=== PATIENT | female | born 1960 | race Caucasian/White ===

== ENCOUNTER 2022-08-19 10:45 | Inpatient (IN) | payer BC ==
--- NOTE | 2022-08-19 11:53 | ED ---
General Adult HPI - General Chief complaint: Shortness of Breath Stated complaint: possible pneumonia or CHF Time Seen by Provider: 08/19/22 11:33 Source: patient Mode of arrival: ambulatory Limitations: no limitations - History of Present Illness Initial comments: Dictation was produced using [employer]. dictation software. please excuse any grammatical, word or spelling errors. Chief Complaint: 62-year-old female told by urgent care come to the ER for further evaluation History of Present Illness: 62-year-old female presents emergency department for further evaluation. She is a recurrent visitor to the urgent care today. She had a repeat x-ray that showed abnormal findings that may represent heart failure versus pneumonia. She presents today after being told to come here. Patient presented to the urgent care approximately 1-2 weeks ago for the same symptoms. She is prescribed medication to treat respiratory infection. Patient felt better symptoms came back after the medication wore off. Patient has a fever. Denies any shortness of breath on lying flat. No leg swelling. History of heart problems. The ROS documented in this emergency department record has been reviewed and confirmed by me. Those systems with pertinent positive or negative responses have been documented in the HPI. All other systems are other negative and/or noncontributory. PHYSICAL EXAM: General Impression: Alert and oriented x3, not in acute distress HEENT: Normocephalic atraumatic, extra-ocular movements intact, pupils equal and reactive to light bilaterally, mucous membranes moist. Cardiovascular: Heart regular rate and rhythm Chest: Able to complete full sentences, no retractions, no tachypnea Abdomen: abdomen soft, non-tender, non-distended, no organomegaly Musculoskeletal: Pulses present and equal in all extremities, no peripheral edema Motor: no focal deficits noted Neurological: CN II-XII grossly intact, no focal motor or sensory deficits noted Skin: Intact with no visualized rashes Psych: Normal affect and mood ED course: 62-year-old well-appearing female presents emergency Department after having had an x-ray at urgent care that showed heart failure versus pneumonia. Vital signs upon arrival are within acceptable limits. Nursing notes and chart review was performed CBC metabolic panel is within acceptable limits. Coag panel is unremarkable. Metabolic panel was within acceptable limits. Brain natruretic peptide is 4980. Chest x-ray shows small right pleural effusion. No obvious heart failure. Physical presentation consistent with new onset atrial fibrillation. Patient started Cardizem and heparin. My EKG interpretation: Ventricular rate 115, A. fib with RVR, QS 84, QTC 39. No NM prolongation, no QTC prolongation, no ST or T-wave changes noted. Overall, this EKG is unremarkable Critical Care: yes Critical Care time: 33 minutes - Related Data Home Medications Medication Instructions Recorded Confirmed Albuterol Sulfate [Albuterol 2 puff PO RT-Q6H PRN 08/19/22 08/19/22 Sulfate Hfa] Allergies Allergy/AdvReac Type Severity Reaction Status Date / Time azithromycin AdvReac Nausea & Verified 08/19/22 12:36 Vomiting Review of Systems ROS Statement: Those systems with pertinent positive or pertinent negative responses have been documented in the HPI. ROS Other: All systems not noted in ROS Statement are negative. Past Medical History Past Medical History: No Reported History History of Any Multi-Drug Resistant Organisms: None Reported Past Surgical History: No Surgical Hx Reported Past Psychological History: No Psychological Hx Reported Smoking Status: Never smoker Past Alcohol Use History: None Reported Past Drug Use History: None Reported General Exam Limitations: no limitations Course Vital Signs 08/19/22 08/19/22 11:07 12:03 Temperature 98 F Pulse Rate 77 Respiratory 18 18 Rate Blood Pressure 160/105 O2 Sat by Pulse 99 Oximetry Medical Decision Making - Lab Data Result diagrams: 08/19/22 11:58 08/19/22 11:58 Lab Results 08/19/22 08/19/22 08/19/22 Range/Units 11:58 11:58 11:58 WBC 9.2 (3.8-10.6) k/uL RBC 4.84 (3.80-5.40) m/uL Hgb 12.8 (11.4-16.0) gm/dL Hct 39.8 (34.0-46.0) % MCV 82.3 (80.0-100.0) fL MCH 26.5 (25.0-35.0) pg MCHC 32.2 (31.0-37.0) g/dL RDW 15.6 H (11.5-15.5) % Plt Count 355 (150-450) k/uL MPV 8.6 Neutrophils % 80 % Lymphocytes % 15 % Monocytes % 4 % Eosinophils % 0 % Basophils % 0 % Neutrophils # 7.3 (1.3-7.7) k/uL Lymphocytes # 1.4 (1.0-4.8) k/uL Monocytes # 0.3 (0-1.0) k/uL Eosinophils # 0.0 (0-0.7) k/uL Basophils # 0.0 (0-0.2) k/uL Hypochromasia Moderate PT (9.0-12.0) sec INR (<1.2) APTT (22.0-30.0) sec Sodium 141 (137-145) mmol/L Potassium 4.3 (3.5-5.1) mmol/L Chloride 112 H (98-107) mmol/L Carbon Dioxide 19 L (22-30) mmol/L Anion Gap 10 mmol/L BUN 12 (7-17) mg/dL Creatinine 0.50 L (0.52-1.04) mg/dL Est GFR (CKD-EPI)AfAm >90 (>60 ml/min/1.73 sqM) Est GFR (CKD-EPI)NonAf >90 (>60 ml/min/1.73 sqM) Glucose 130 H (74-99) mg/dL Calcium 9.3 (8.4-10.2) mg/dL Magnesium (1.6-2.3) mg/dL Troponin I (0.000-0.034) ng/mL NT-Pro-B Natriuret Pep 4980 pg/mL 08/19/22 08/19/22 08/19/22 Range/Units 11:58 11:58 12:11 WBC (3.8-10.6) k/uL RBC (3.80-5.40) m/uL Hgb (11.4-16.0) gm/dL Hct (34.0-46.0) % MCV (80.0-100.0) fL MCH (25.0-35.0) pg MCHC (31.0-37.0) g/dL RDW (11.5-15.5) % Plt Count (150-450) k/uL MPV Neutrophils % % Lymphocytes % % Monocytes % % Eosinophils % % Basophils % % Neutrophils # (1.3-7.7) k/uL Lymphocytes # (1.0-4.8) k/uL Monocytes # (0-1.0) k/uL Eosinophils # (0-0.7) k/uL Basophils # (0-0.2) k/uL Hypochromasia PT 11.4 (9.0-12.0) sec INR 1.1 (<1.2) APTT 20.6 L (22.0-30.0) sec Sodium (137-145) mmol/L Potassium (3.5-5.1) mmol/L Chloride (98-107) mmol/L Carbon Dioxide (22-30) mmol/L Anion Gap mmol/L BUN (7-17) mg/dL Creatinine (0.52-1.04) mg/dL Est GFR (CKD-EPI)AfAm (>60 ml/min/1.73 sqM) Est GFR (CKD-EPI)NonAf (>60 ml/min/1.73 sqM) Glucose (74-99) mg/dL Calcium (8.4-10.2) mg/dL Magnesium 1.8 (1.6-2.3) mg/dL Troponin I <0.012 (0.000-0.034) ng/mL NT-Pro-B Natriuret Pep pg/mL Disposition Clinical Impression: New onset a-fib Disposition: ADMITTED IP TO THIS HOSP Condition: Serious Referrals: Liban Moura III, MD [Primary Care Provider] - 1-2 days Decision Time: 14:17
[2022-08-19 12:07] LABS: Basophils % (A) 0 %; Eosinophils % (A) 0 %; HCT 39.8 % (34.0-46.0); HGB 12.8 gm/dL (11.4-16.0); Hypochromasia Moderate; Lymphocytes # (A) 1.4 k/uL (1.0-4.8); Lymphocytes % (A) 15 %; MCH 26.5 pg (25.0-35.0); MCHC 32.2 g/dL (31.0-37.0); MCV 82.3 fL (80.0-100.0); Mean Platelet Volume 8.6; Monocytes # (A) 0.3 k/uL (0-1.0); Monocytes % (A) 4 %; Neutrophils # (A) 7.3 k/uL (1.3-7.7); Neutrophils % (A) 80 %; Platelet Count 355 k/uL (150-450); RBC 4.84 m/uL (3.80-5.40); RDW 15.6 % (11.5-15.5); WBC 9.2 k/uL (3.8-10.6)
[2022-08-19 12:25] LABS: African American GFR (CKD) >90 (>60 ml/min/1.73 sqM); Anion Gap 10 mmol/L; Blood Urea Nitrogen 12 mg/dL (7-17); Calcium 9.3 mg/dL (8.4-10.2); Carbon Dioxide 19 mmol/L (22-30); Chloride 112 mmol/L (98-107); Glucose 130 mg/dL (74-99); Non-African American GFR(CKD) >90 (>60 ml/min/1.73 sqM); Potassium 4.3 mmol/L (3.5-5.1); Sodium 141 mmol/L (137-145)
--- NOTE | 2022-08-19 12:29 | XR ---
EXAMINATION TYPE: XR chest 2V DATE OF EXAM: 08/19/2022 COMPARISON: None INDICATION: Reported wheezing TECHNIQUE: Frontal and lateral views of the chest are obtained. FINDINGS: The heart size is normal. The pulmonary vasculature is normal. The lungs are clear. No suspicious infiltrates. No suspicious peribronchial thickening is evident. S ome minimal posterior effusion may be present on the right. IMPRESSION: 1. Suggestion of minimal posterior right pleural effusion. 2. Acute pulmonary process not otherwise radiographically evident. 3. Follow-up can be performed as clinically indicated.
[2022-08-19] MEDS ORDERED: NALOXONE 0.4 MG/ML 1 ML VIAL IV PRN (13:40)
[2022-08-19] MEDS ORDERED: HEPARIN SODIUM 1,000 UN/ML (10ML VL) IV PRN (13:40)
[2022-08-19] MEDS ORDERED: ACETAMINOPHEN TAB 325 MG TAB PO PRN (13:40)
[2022-08-19] MEDS ORDERED: HEPARIN SODIUM 1,000 UN/ML (10ML VL) IV ONE (13:40)
[2022-08-19] MEDS ORDERED: HEPARIN SOD,PORK IN 0.45% NACL 25,000 UNIT in 0.45% NACL 1 250ML.BAG IV SCH (13:45)
[2022-08-19] MEDS ORDERED: SODIUM CHLORIDE 0.9% 1,000 ML IV SCH (13:45)
[2022-08-19 14:01] LABS: INR 1.1 (<1.2); Partial Thromboplastin Time 20.6 sec (22.0-30.0); Prothrombin Time 11.4 sec (9.0-12.0)
[2022-08-19] MEDS: DILTIAZEM 125 MG in SODIUM CHLORIDE 0.9% 100 ML IV SCH (14:38)
[2022-08-20] MEDS: DILTIAZEM 125 MG in SODIUM CHLORIDE 0.9% 100 ML IV SCH (04:02)
[2022-08-20] MEDS ORDERED: ALBUTEROL NEBULIZED 2.5 MG/3 ML INHALATION PRN (07:21)
[2022-08-20 08:37] LABS: Basophils % (A) 0 %; Eosinophils # (A) 0.1 k/uL (0-0.7); Eosinophils % (A) 1 %; HCT 39.7 % (34.0-46.0); HGB 12.6 gm/dL (11.4-16.0); Hypochromasia Moderate; Lymphocytes # (A) 1.9 k/uL (1.0-4.8); Lymphocytes % (A) 26 %; MCH 26.4 pg (25.0-35.0); MCHC 31.7 g/dL (31.0-37.0); MCV 83.4 fL (80.0-100.0); Mean Platelet Volume 8.2; Monocytes # (A) 0.3 k/uL (0-1.0); Monocytes % (A) 4 %; Neutrophils % (A) 67 %; Platelet Count 337 k/uL (150-450); RBC 4.75 m/uL (3.80-5.40); RDW 15.7 % (11.5-15.5); WBC 7.5 k/uL (3.8-10.6)
[2022-08-20 08:52] LABS: African American GFR (CKD) >90 (>60 ml/min/1.73 sqM); Anion Gap 7 mmol/L; Blood Urea Nitrogen 12 mg/dL (7-17); Calcium 8.9 mg/dL (8.4-10.2); Carbon Dioxide 24 mmol/L (22-30); Chloride 111 mmol/L (98-107); Glucose 125 mg/dL (74-99); Non-African American GFR(CKD) >90 (>60 ml/min/1.73 sqM); Potassium 4.3 mmol/L (3.5-5.1); Sodium 142 mmol/L (137-145)
[2022-08-20] MEDS ORDERED: METOPROLOL TARTRATE 12.5 MG TAB PO SCH (09:00)
--- NOTE | 2022-08-20 09:08 | P.CRDCN ---
History of Present Illness Consult date: 08/20/22 Consult reason: atrial fibrillation History of present illness: History of present illness: This is a 62-year-old female with no significant past medical history. Patient was recently treated for a bronchitis with amoxicillin inhalers and steroids which seemed to improve her symptoms. She did a follow-up appointment at the clinic because she was having a cough with deep breathing in the clinic did a chest x-ray and recommended that she come in the hospital for further evaluation. Patient was found to be in atrial fibrillation. Chest x-ray showed minimal right pleural effusion with no acute process. Patient apparently was s tarted on Cardizem drip which was discontinued because her heart rate dropped down to 60s and patient was started on heparin drip. Patient states she has multiple siblings with atrial fibrillation and has a brother that had an [place] in his 50s. 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 Troponin negative 1 draw * no cardiac home medications Review Of Systems: at the time of my evaluation Constitutional: No fever, no chills. No weakness, fatigue or lethargy. EENT: No headache. No dizziness. Lungs: No shortness of breath, cough, no sputum production. No wheezing. Cardiovascular: No chest pain, no lower extremity edema. No palpitations. No paroxysmal nocturnal dyspnea. No orthopnea. No lightheadedness or dizziness. No syncopal episodes. Abdominal: No abdominal pain. No nausea, vomiting. No diarrhea. No constipation. No bloody or tarry stools.. No loss of appetite. Genitourinary: No dysuria.. No urinary retention. Musculoskeletal: No myalgias. No muscle weakness, no gait dysfunction, no frequent falls. No back pain. No neck pain. Integumentary: No wounds, no lesions. No rash or pruritus. No unusual bruising. Neurologic: No aphasia. No facial droop. No change in mentation. No head injury. No headache. No paralysis. No paresthesia. Psychiatric: No depression. reports anxiety. Endocrine: No abnormal blood sugars. Physical examination: Gen: This is a 62-year-old female. She is resting in bed and appears to be very anxious. VS:reviewed HEENT: Head is atraumatic, normocephalic. Pupils equal, round. Sclerae is anicteric. NECK: Supple. No JVD. No lymphadenopathy. No thyromegaly. LUNGS: Clear to auscultation. No wheezes or rhonchi. No intercostal retractions. HEART: irregular rate and rhythm. No murmur. ABDOMEN: Soft. Bowel sounds are present. No masses. No tenderness. EXTREMITIES: No pedal edema. No calf tenderness.dorsalis pedis +2 bilaterally NEUROLOGICAL: Patient is awake, alert and oriented x3. Cranial nerves 2 through 12 are grossly intact. Assessment: new-onset atrial fibrillation, paroxysmal atrial fibrillation Recent treatment for bronchitis Plan: transition patient to eliquis 5 mg twice daily and discontinue heparin drip add Toprol-XL 25 mg daily Obtain 2-D echocardiogram and Doppler study to assess cardiac structure and function May consider cardioversion in 3 weeks as an outpatient Further recommendations to follow based upon clinical course Thank you kindly for this consultation. Nurse practitioner note has been reviewed, I agree with documented findings and plan of care. Patient was seen and examined. Past Medical History Past Medical History: No Reported History History of Any Multi-Drug Resistant Organisms: None Reported Past Surgical History: No Surgical Hx Reported Past Psychological History: No Psychological Hx Reported Smoking Status: Never smoker Past Alcohol Use History: None Reported Past Drug Use History: None Reported Medications and Allergies Home Medications Medication Instructions Recorded Confirmed Type Albuterol Sulfate [Albuterol 2 puff PO RT-Q6H PRN 08/19/22 08/19/22 History Sulfate Hfa] Apixaban [Eliquis] 5 mg PO BID #60 tab 08/20/22 Rx Allergies Allergy/AdvReac Type Severity Reaction Status Date / Time azithromycin AdvReac Nausea & Verified 08/19/22 12:36 Vomiting Physical Exam Vitals: Vital Signs Temp Pulse Pulse Resp BP BP Pulse Ox 08/20/22 04:00 76 18 130/80 97 08/20/22 01:44 70 08/20/22 00:00 98.7 F 88 18 132/77 95 08/19/22 22:05 98.2 F 70 16 127/77 97 08/19/22 19:20 79 18 133/87 99 08/19/22 18:02 96 18 140/104 100 08/19/22 17:05 81 18 144/97 98 08/19/22 16:00 83 17 127/96 100 08/19/22 15:30 90 18 133/91 99 08/19/22 14:40 114 H 16 148/116 96 08/19/22 12:03 18 08/19/22 11:07 98 F 77 18 160/105 99 Intake and Output 08/19/22 08/20/22 08/20/22 22:59 06:59 14:59 Intake Total 378.48 Balance 378.48 Intake: Intake, IV Titration 138.48 Amount Diltiazem 125 mg In 50 Sodium Chloride 0.9% 100 ml @ 10 MG/HR 10 mls/hr IV .[id number] [facility] Rx#: [id number] Heparin Sod,Pork in 0.45% 88.48 NaCl 25,000 unit In 0.45 % NaCl 1 250ml.bag @ 10 UNITS/KG/HR 9.979 mls/hr IV .Q24H [facility] Rx#: [id number] Oral 240 Other: # Voids 3 Results 08/20/22 08:09 08/20/22 08:09 Cardiac Enzymes 08/19/22 Range/Units 11:58 Troponin I <0.012 (0.000-0.034) ng/mL Coagulation 08/19/22 08/19/22 Range/Units 12:11 22:43 PT 11.4 (9.0-12.0) sec APTT 20.6 L 28.3 (22.0-30.0) sec CBC 08/19/22 Range/Units 11:58 WBC 9.2 (3.8-10.6) k/uL RBC 4.84 (3.80-5.40) m/uL Hgb 12.8 (11.4-16.0) gm/dL Hct 39.8 (34.0-46.0) % Plt Count 355 (150-450) k/uL Comprehensive Metabolic Panel 08/19/22 Range/Units 11:58 Sodium 141 (137-145) mmol/L Potassium 4.3 (3.5-5.1) mmol/L Chloride 112 H (98-107) mmol/L Carbon Dioxide 19 L (22-30) mmol/L BUN 12 (7-17) mg/dL Creatinine 0.50 L (0.52-1.04) mg/dL Glucose 130 H (74-99) mg/dL Calcium 9.3 (8.4-10.2) mg/dL Current Medications Generic Name Dose Route Start Last Admin Trade Name Mariela PRN Reason Stop Dose Admin Acetaminophen 650 mg 08/19/22 13:40 Acetaminophen Tab 325 Mg Tab PO Q6HR PRN Mild Pain or Fever > 100.5 Albuterol Sulfate 2.5 mg 08/20/22 07:21 Albuterol Nebulized 2.5 Mg/3 Ml INHALATION RT-Q6H PRN Shortness Of Breath Heparin Sodium (Porcine) 0 unit 08/19/22 13:40 Heparin Sodium 1,000 Un/Ml (10ml Vl) IV PER PROTOCOL PRN Low PTT Protocol Heparin Sodium/Sodium Chloride 250 mls @ 9.979 mls/hr 08/19/22 13:45 08/19/22 23:31 25,000 unit/ Sodium Chloride IV 13 units/kg/hr .Q24H [facility] 12.973 mls/hr Titration Protocol 10 UNITS/KG/HR Sodium Chloride 1,000 mls @ 20 mls/hr 08/19/22 13:45 08/19/22 14:38 Saline 0.9% IV 20 mls/hr .Q24H [facility] Administration Naloxone HCl 0.2 mg 08/19/22 13:40 Naloxone 0.4 Mg/Ml 1 Ml Vial IV Q2M PRN Opioid Reversal Pantoprazole Sodium 40 mg 08/20/22 07:30 Pantoprazole 40 Mg Tablet PO AC-[id number] [facility] Intake and Output 08/19/22 08/20/22 08/20/22 22:59 06:59 14:59 Intake Total 378.48 Balance 378.48 Intake: Intake, IV Titration 138.48 Amount Diltiazem 125 mg In 50 Sodium Chloride 0.9% 100 ml @ 10 MG/HR 10 mls/hr IV .[id number] [facility] Rx#: [id number] Heparin Sod,Pork in 0.45% 88.48 NaCl 25,000 unit In 0.45 % NaCl 1 250ml.bag @ 10 UNITS/KG/HR 9.979 mls/hr IV .Q24H [facility] Rx#: [id number] Oral 240 Other: # Voids 3 08/19/22 11:58 08/19/22 11:58
[2022-08-20] MEDS: PANTOPRAZOLE 40 MG TABLET PO SCH (09:14)
[2022-08-20] MEDS: METOPROLOL SUCCINATE (ER) 25 MG TAB.ER.24H PO SCH (11:25)
[2022-08-20] MEDS: APIXABAN 5 MG TAB PO SCH ×2 (11:25→20:35)
--- NOTE | 2022-08-20 13:47 | P.HPIM ---
History of Present Illness H&P Date: 08/20/22 This is a 62-year-old female who was recently presented to the emergency department with with palpitations and increasing shortness of breath. Patient reports she has been seen at the outpatient setting in an urgent care started on antibiotics and steroids and has completed the course reporting feeling better she was reporting some upper sinus congestion and pressure with some occasional shortness of breath. Patient reports she felt better for a few days and the palpitations started again and was instructed to follow-up at the ER for further evaluation. Patient follows with Dr. Moura in the outpatient setting with no past medical history reports that she does not take medications on a regular basis. Patient does have an inhaler as needed that was given to her recently. EKG displayed atrial fibrillation with RVR with a heart rate of 115. Chest x- ray with no acute pulmonary process with concerns of a possible minimal posterior right pleural effusion. Troponin was negative. Patient was started on IV heparin along with Cardizem and her heart rate dropped down to the 60s quickly and Cardizem was discontinued. Cardiology was consulted for evaluation and continued telemetry monitoring. 2-D echo is ordered and pending. Review Of Systems: Constitutional: No fever, no chills, no night sweats. No weight change. No weakness, fatigue or lethargy. No daytime sleepiness. EENT: No headache. No blurred vision or double vision, no loss of vision. No loss of Hearing, no ringing in the ears, no dizziness. No nasal drainage or congestion. No epistaxis. No sore throat. Lungs: Reports intermittent shortness of breath, reports occasional cough, no sputum production. Reports some mild wheezing. Cardiovascular: No chest pain, no lower extremity edema. Reports palpitations. No paroxysmal nocturnal dyspnea. No orthopnea. No lightheadedness or dizziness. No syncopal episodes. Abdominal: No abdominal pain. No nausea, vomiting. No diarrhea. No constipation. No bloody or tarry stools.. No loss of appetite. Genitourinary: No dysuria, increased frequency, urgency. No urinary retention. Musculoskeletal: No myalgias. No muscle weakness, no gait dysfunction, no fr equent falls. No back pain. No neck pain. Integumentary: No wounds, no lesions. No rash or pruritus. No unusual bruising. No change in hair or nails. Neurologic: No aphasia. No facial droop. No change in mentation. No head injury. No headache. No paralysis. No paresthesia. Psychiatric: No depression. No anxiety. No mood swings. Endocrine: No abnormal blood sugars. No weight change. No excessive sweating or thirst. No cold intolerance. PHYSICAL EXAMINATION: GENERAL: The patient is alert and oriented x4, Well developed, well nourished. HEENT: Pupils are round and equally reacting to light. EOMI. no scleral icterus. No conjunctival pallor. Normocephalic, atraumatic. No pharyngeal erythema. No thyromegaly. CARDIOVASCULAR: S1 and S2 muffled , irregularly irregular PULMONARY: diminished breath sounds bilaterally with no wheezing or rhonchi noted. ABDOMEN: soft. Nontender on exam. obese. non-distended, normoactive bowel sounds. No palpable organomegaly. MUSCULOSKELETAL: No joint swelling or deformity. EXTREMITIES: No cyanosis, clubbing, or pedal edema. NEUROLOGICAL: Gross neurological examination did not reveal any focal deficits. SKIN: No rashes. Assessment: Atrial fibrillation with RVR, new onset History of recent bronchitis Obesity with a BMI of 37.8 Elevated BNP of 4980 with no history of heart failure, 2-D echo is pending GI prophylaxis DVT prophylaxis Full code Plan: Recommend to continue with current medications and management with cardiology following. She was initiated on IV heparin along with Cardizem and Cardizem discontinued started on metoprolol and being transitioned oral anticoagulant in the form of eliquis and coverage was verified. Patient continued on telemetry monitoring continues in A. fib although better rate controlled extremely anxious to go home. 2-D echo continues to be pending and discussed with cardiology would like to have the 2-D echo done and can follow-up outpatient. Attempted to contact the tech and left a voicemail. This was also discussed with Dr. Patel cardiology was agreeable with the plan. Patient reports to feeling well and would like to go home. Will follow-up with echo which is pending. Patient will possibly be discharged later today or tomorrow morning pending the echo. The impression and plan of care has been dictated by Lelia Myrick, nurse practitioner as directed. Dr. Deanna MD I have performed a history and examination and MDM of this patient, discussed the same with the dictator, and agree with the dictator's assessment and plan as written ,documented as a scribe. Based on total visit time, I have performed more than 50% of the visit. Any additional findings or plans will be noted. Past Medical History Past Medical History: No Reported History History of Any Multi-Drug Resistant Organisms: None Reported Past Surgical History: No Surgical Hx Reported Past Psychological History: No Psychological Hx Reported Smoking Status: Never smoker Past Alcohol Use History: None Reported Past Drug Use History: None Reported Medications and Allergies Home Medications Medication Instructions Recorded Confirmed Type Albuterol Sulfate [Albuterol 2 puff PO RT-Q6H PRN 08/19/22 08/19/22 History Sulfate Hfa] Apixaban [Eliquis] 5 mg PO BID #60 tab 08/20/22 Rx Allergies Allergy/AdvReac Type Severity Reaction Status Date / Time azithromycin AdvReac Nausea & Verified 08/19/22 12:36 Vomiting Physical Exam Vitals: Vital Signs Temp Pulse Pulse Resp BP BP Pulse Ox 08/20/22 04:00 76 18 130/80 97 08/20/22 01:44 70 08/20/22 00:00 98.7 F 88 18 132/77 95 08/19/22 22:05 98.2 F 70 16 127/77 97 08/19/22 19:20 79 18 133/87 99 08/19/22 18:02 96 18 140/104 100 08/19/22 17:05 81 18 144/97 98 08/19/22 16:00 83 17 127/96 100 08/19/22 15:30 90 18 133/91 99 08/19/22 14:40 114 H 16 148/116 96 08/19/22 12:03 18 08/19/22 11:07 98 F 77 18 160/105 99 Intake and Output 08/19/22 08/20/22 08/20/22 22:59 06:59 14:59 Intake Total 378.48 Balance 378.48 Intake: Intake, IV Titration 138.48 Amount Diltiazem 125 mg In 50 Sodium Chloride 0.9% 100 ml @ 10 MG/HR 10 mls/hr IV .[id number] [facility] Rx#: [id number] Heparin Sod,Pork in 0.45% 88.48 NaCl 25,000 unit In 0.45 % NaCl 1 250ml.bag @ 10 UNITS/KG/HR 9.979 mls/hr IV .Q24H [facility] Rx#: [id number] Oral 240 Other: # Voids 3 Results CBC & Chem 7: 08/20/22 08:09 08/20/22 08:09 Labs: Abnormal Lab Results - Last 24 Hours (Table) 08/19/22 08/19/22 08/19/22 Range/Units 11:58 11:58 12:11 RDW 15.6 H (11.5-15.5) % APTT 20.6 L (22.0-30.0) sec Chloride 112 H (98-107) mmol/L Carbon Dioxide 19 L (22-30) mmol/L Creatinine 0.50 L (0.52-1.04) mg/dL Glucose 130 H (74-99) mg/dL 08/20/22 08/20/22 08/20/22 Range/Units 08:09 08:09 08:09 RDW 15.7 H (11.5-15.5) % APTT 36.4 H (22.0-30.0) sec Chloride 111 H (98-107) mmol/L Carbon Dioxide (22-30) mmol/L Creatinine (0.52-1.04) mg/dL Glucose 125 H (74-99) mg/dL Thrombosis Risk Factor Assmnt - DVT/VTE Prophylaxis DVT/VTE Prophylaxis: Pharmacologic Prophylaxis ordered - Choose All That Apply Other Risk Factors: Yes Each Risk Factor Represents 2 Points: Age 61-74 years Thrombosis Risk Factor Assessment Total Risk Factor Score: 2 Thrombosis Risk Factor Assessment Level: Low Risk Assessment and Plan Time with Patient: Greater than 30
[2022-08-21] MEDS: PANTOPRAZOLE 40 MG TABLET PO SCH (06:25)
[2022-08-21] MEDS: METOPROLOL SUCCINATE (ER) 25 MG TAB.ER.24H PO SCH (08:53)
[2022-08-21] MEDS: APIXABAN 5 MG TAB PO SCH (08:53)
[2022-08-21] MEDS ORDERED: METOPROLOL SUCCINATE (ER) 25 MG TAB.ER.24H PO STA (12:02)
[2022-08-21] MEDS: LOSARTAN 25 MG TAB PO SCH (12:20)
[2022-08-21 13:25] LABS: ALT 124 U/L (4-34); AST 57 U/L (14-36); African American GFR (CKD) >90 (>60 ml/min/1.73 sqM); Albumin 4.2 g/dL (3.5-5.0); Alkaline Phosphatase 75 U/L (38-126); Anion Gap 10 mmol/L; Blood Urea Nitrogen 16 mg/dL (7-17); Calcium 8.9 mg/dL (8.4-10.2); Carbon Dioxide 18 mmol/L (22-30); Chloride 113 mmol/L (98-107); Glucose 115 mg/dL (74-99); Non-African American GFR(CKD) >90 (>60 ml/min/1.73 sqM); Potassium 4.6 mmol/L (3.5-5.1); Sodium 141 mmol/L (137-145); Total Bilirubin 0.8 mg/dL (0.2-1.3); Total Protein 6.5 g/dL (6.3-8.2)
[2022-08-21 13:35] LABS: HCT 39.5 % (34.0-46.0); HGB 12.2 gm/dL (11.4-16.0); Hypochromasia Marked; MCH 26.3 pg (25.0-35.0); MCHC 30.9 g/dL (31.0-37.0); MCV 85.2 fL (80.0-100.0); Mean Platelet Volume 8.5; Platelet Count 360 k/uL (150-450); RBC 4.64 m/uL (3.80-5.40); RDW 15.8 % (11.5-15.5); WBC 7.7 k/uL (3.8-10.6)
--- NOTE | 2022-08-21 14:11 | P.PN ---
Subjective Progress Note Date: 08/21/22 This is a 62-year-old female who was recently presented to the emergency department with with palpitations and increasing shortness of breath. Patient reports she has been seen at the outpatient setting in an urgent care started on antibiotics and steroids and has completed the course reporting feeling better she was reporting some upper sinus congestion and pressure with some occasional shortness of breath. Patient reports she felt better for a few days and the palpitations started again and was instructed to follow-up at the ER for further evaluation. Patient follows with Dr. Moura in the outpatient setting with no past medical history reports that she does not take medications on a regular basis. Patient does have an inhaler as needed that was given to her recently. EKG displayed atrial fibrillation with RVR with a heart rate of 115. Chest x- ray with no acute pulmonary process with concerns of a possible minimal posterior right pleural effusion. Troponin was negative. Patient was started on IV heparin along with Cardizem and her heart rate dropped down to the 60s quickly and Cardizem was discontinued. Cardiology was consulted for evaluation and continued telemetry monitoring. 2-D echo is ordered and pending. 08/21/2022 Patient is seen and evaluated and follow-up this morning continues to wait for 2-D echo that was ordered yesterday. air and hydronic balancing technician are aware. Cardiology is following patient continues in A. fib rate controlled on dose of metoprolol and was started on oral anticoagulation. Discussed with the patient as she is extremely anxious about discharging home and would like to wait for 2-D echo report. Patient and family at the bedside are agreeable with this and will follow-up once report is available. Patient is afebrile denies chest pain or palpitations. Patient denies shortness of breath at this time. Patient reports she has been up and walking with no difficulties. Patient's hemoglobin A1c was also found to be elevated at 6.4 suggestive of prediabetes and a glucometer was provided by social work and discussed with the patient about diet management and following up with primary care provider and will be starting any new medications at this time. Recommend continue with cardiac management prior to initiating any form of diabetic medications. Review of systems: Constitutional: No reports of fatigue, fever, or chills Cardiovascular: No reports of chest pain or palpitations Respiratory: No reports of shortness of breath or cough GI: No reports of nausea, vomiting, or diarrhea : No reports of dysuria or retention Neurovascular: No reports of weakness or numbness All medications have been reviewed PHYSICAL EXAMINATION: GENERAL: The patient is alert and oriented x4, Well developed, well nourished. Somewhat anxious, obese. HEENT: Pupils are round and equally reacting to light. EOMI. no scleral icterus. No conjunctival pallor. Normocephalic, atraumatic. No pharyngeal erythema. No thyromegaly. CARDIOVASCULAR: S1 and S2 muffled , irregularly irregular PULMONARY: diminished breath sounds bilaterally with no wheezing or rhonchi noted. ABDOMEN: soft. Nontender on exam. obese. non-distended, normoactive bowel sounds. No palpable organomegaly. MUSCULOSKELETAL: No joint swelling or deformity. EXTREMITIES: No cyanosis, clubbing, or pedal edema. NEUROLOGICAL: Gross neurological examination did not reveal any focal deficits. SKIN: No rashes. Assessment: Atrial fibrillation with RVR, new onset History of recent bronchitis Obesity with a BMI of 37.8 Hemoglobin A1c of 6.4, possible pre-diabetes Elevated BNP of 4980 with no history of heart failure, 2-D echo that was done today showing an EF of 20%, possibly acute exacerbation of systolic heart failure GI prophylaxis DVT prophylaxis Full code Plan: Recommend to continue with current medications and management with cardiology following. Patient has been transitioned to Eliquis in currently rate controlled on Toprol and was awaiting 2-D echo that was ordered yesterday. Apparently not enough staff as there are multiple echoes ordered and pending from previous day. Cardiology was made aware. Patient extremely anxious to be discharged although now agreeable as cardiology had a detailed discussion with her about her reduced ejection fraction of approximately 20% with no history of heart failure recommending cardiac catheterization. Patient is agreeable and will be nothing by mouth at midnight and will await report. Recommend telemetry monitoring. Hemoglobin A1c was ordered and elevated at 6.4 likely to suggest possible prediabetes and recommend diet modification and testing blood sugars daily and keeping a diary of readings for primary care follow-up. Social work provided patient with a glucometer and was instructed to follow-up with primary care provider about this. Patient is agreeable with testing daily and will initiate diet modifications. The impression and plan of care has been dictated by Lelia Myrick, nurse practitioner as directed. Dr. Deanna MD I have performed a history and examination and MDM of this patient, discussed the same with the dictator, and agree with the dictator's assessment and plan as written ,documented as a scribe. Based on total visit time, I have performed more than 50% of the visit. Any additional findings or plans will be noted. Objective - Vital Signs Vital signs: Vital Signs Temp 97.6 F 08/21/22 08:00 Pulse 99 08/21/22 12:00 Resp 16 08/21/22 12:00 BP 150/95 08/21/22 12:00 Pulse Ox 95 08/21/22 12:00 FiO2 Intake & Output 08/20/22 08/21/22 08/21/22 18:59 06:59 18:59 Intake Total 758.307 7356 180 Balance 956.713 6613 180 Intake: Intake, IV Titration 126.487 Amount Heparin Sod,Pork in 0.45% 126.487 NaCl 25,000 unit In 0.45 % NaCl 1 250ml.bag @ 10 UNITS/KG/HR 9.979 mls/hr IV .Q24H TRISTIN Rx#: [id number] Oral 300 1260 180 Other: # Voids 2 2 - Labs CBC & Chem 7: 08/21/22 12:41 08/21/22 12:41 Labs: Abnormal Lab Results - Last 24 Hours (Table) 08/20/22 08/21/22 Range/Units 15:44 12:41 Chloride 113 H (98-107) mmol/L Carbon Dioxide 18 L (22-30) mmol/L Glucose 115 H (74-99) mg/dL Hemoglobin A1c 6.4 H (0.0-6.0) % AST 57 H (14-36) U/L ALT 124 H (4-34) U/L
--- NOTE | 2022-08-21 14:31 | PN ---
PROGRESS NOTE SUBJECTIVE: Angie is a 62-year-old lady with no significant past medical history who presented with symptoms of bronchitis, presented to an urgent care center with symptoms of bronchitis, was diagnosed with respiratory tract infection and was seen in the Urgent Care Center and a chest x-ray showed changes of small right pleural effusion and then she presented to the emergency room. She was in atrial fibrillation with rapid ventricular rate and the patient is admitted to hospital and has been treated with beta blockers, initially with IV heparin and subsequently had been started on Eliquis. An echocardiogram that was ordered on her initial presentation has just been done this morning, we still do not have the report here though. I am going to re-dictate this. DICTATION ENDS HERE MMODL / IJN: [id number] /
[2022-08-21] MEDS ORDERED: ALPRAZolam 0.5 MG TAB PO PRN (14:35)
[2022-08-21] MEDS ORDERED: ALPRAZolam 0.25 MG TAB PO PRN (14:35)
[2022-08-21] MEDS ORDERED: NITROGLYCERIN SL TABS 0.4 MG TAB SUBLINGUAL PRN (14:35)
[2022-08-21] MEDS: FUROSEMIDE 20 MG TAB PO SCH (14:44)
[2022-08-21 20:51] LABS: Glucose,Whole Blood 97 mg/dL (70-110)
--- NOTE | 2022-08-21 20:57 | CA ---
Transthoracic Echo Report Name: Angie Burns Age: 62 Gender: F : 1960 Exam Date: 08/21/2022 09:38 Exam Location: [facility] Ht (in): 64 Wt (lb): 220 Ordering Physician: Lelia Myrick Attending/Referring Phys: [employer] Testing Manager Sandi Massey RDCS Procedure CPT: Indications: New onset afib Cardiac Hx: Technical Quality: Good Contrast 1: Total Dose (mL): Contrast 2: Total Dose (mL): MEASUREMENTS (Male / Female) Normal Values 2D ECHO LV Diastolic Diameter PLAX 4.8 cm 4.2 - 5.9 / 3.9 - 5.3 cm LV Systolic Diameter PLAX 4.7 cm IVS Diastolic Thickness 1.3 cm 0.6 - 1.0 / 0.6 - 0.9 cm LVPW Diastolic Thickness 1.2 cm 0.6 - 1.0 / 0.6 - 0.9 cm LV Relative Wall Thickness 0.5 RV Internal Dim ED PLAX 3.7 cm LA Systolic Diameter LX 4.8 cm 3.0 - 4.0 / 2.7 - 3.8 cm LV Diastolic Volume MOD 4C 96.7 cm??? LV Systolic Volume MOD 4C 72.4 cm??? LV Ejection Fraction MOD 4C 25.1 % LV Diastolic Length 4C 8.0 cm LV Systolic Length 4C 7.2 cm LV Diastolic Volume MOD 2C 115.1 cm??? LV Systolic Volume MOD 2C 82.2 cm??? LV Ejection Fraction MOD 2C 28.6 % LV Diastolic Length 2C 8.0 cm LV Systolic Length 2C 7.3 cm LA Volume 73.7 cm??? 18 - 58 / 22 - 52 cm??? M-MODE Aortic Root Diameter MM 3.5 cm MV E Point Septal Separation 1.2 cm AV Cusp Separation MM 2.2 cm DOPPLER AV Peak Velocity 170.8 cm/s AV Peak Gradient 11.7 mmHg MV Peak Velocity 153.6 cm/s MV Peak Gradient 9.4 mmHg MV Mean Velocity 64.2 cm/s MV Mean Gradient 2.3 mmHg MV Velocity Time Integral 34.1 cm MV Area PHT 6.8 cm??? MR Peak Velocity 506.5 cm/s MR Peak Gradient 102.6 mmHg MV Deceleration Time 138.5 ms TR Peak Velocity 261.1 cm/s TR Peak Gradient 27.3 mmHg Right Ventricular Systolic Press 41.2 mmHg FINDINGS Left Ventricle Left ventricular ejection fraction is estimated at 20-25 %. Left ventricular cavity size normal. Mild concentric left ventricular hypertrophy. Right Ventricle Mild right ventricular dilatation. Mild pulmonary hypertension. Right Atrium Normal right atrial size. Left Atrium Severely increased left atrial diameter. Severely increased left atrial volume. No evidence for an atrial septal defect. Mitral Valve Structurally normal mitral valve. Severe mitral regurgitation. Aortic Valve Trileaflet aortic valve. No aortic valve stenosis or regurgitation. Tricuspid Valve Prolapse of the anterior tricuspid valve leaflet. Severe tricuspid regurgitation. Pulmonic Valve Structurally normal pulmonic valve. Mild pulmonic regurgitation. Pericardium No pericardial effusion. Aorta Normal size aortic root and proximal ascending aorta. CONCLUSIONS Left ventricle size is normal. There is global decrease in contractility. Estimated ejection fraction of about 20-25%. There is severe mitral and tricuspid insufficiency. Right-sided pressures are moderately elevated. No pericardial effusion Previewed by: Dr. Warren Mendez MD (Electronically Signed) Final Date: 21 August 2022 20:56
[2022-08-21] MEDS ORDERED: HEPARIN SODIUM 1,000 UN/ML (10ML VL) IV ONE (21:00)
[2022-08-21] MEDS ORDERED: HEPARIN SOD,PORK IN 0.45% NACL 25,000 UNIT in 0.45% NACL 1 250ML.BAG IV SCH (21:00)
[2022-08-21] MEDS ORDERED: HEPARIN SODIUM 1,000 UN/ML (10ML VL) IV PRN (21:00)
--- NOTE | 2022-08-21 23:31 | PN ---
PROGRESS NOTE SUBJECTIVE: This is a 62-year-old lady with no significant past medical history, who presented to hospital with symptoms of sustained palpitations that developed suddenly. The patient was being treated as bronchitis and viral infection and was evaluated on an outpatient basis twice in the last 3 weeks. Because of her symptoms, came into the emergency room. Her initial symptomatology was suggestive of upper respiratory tract infection and she was treated with antibiotics and steroids. Came to the ER because of sudden onset palpitations. Her initial EKG showed atrial fibrillation with poorly controlled ventricular rate. A chest x-ray showed minimal right-sided pleural effusion, and she was started on intravenous heparin along with Cardizem and subsequently had been treated with oral beta blockers and had been switched to Eliquis. An echocardiogram was ordered when she first came, but could not be done until this morning because of staffing issues and the patient's symptomatology has remained essentially unchanged. Clinically, she felt better. Heart rates have been between 90s and 100s, but the patient and the family were unhappy that the echo was not done until today. The echocardiogram showed severe LV systolic dysfunction with an ejection fraction of around 25% with mitral and tricuspid regurgitation. Left atrium appears enlarged. Her echo findings are suggestive of cardiomyopathy. I had a long conversation with the patient and there were 2 daughters present in the room about possible etiological possibilities and treatment options. I told them that there are multiple etiological possibilities for the LV systolic dysfunction including underlying ischemic heart disease, viral infection, idiopathic cardiomyopathy related to atrial fibrillation with poorly controlled ventricular rate, which is less likely. The plan at this stage is to treat her with TUCKER inhibitors, beta blockers, anticoagulants. Arrange for a LifeVest. I talked to her about undergoing cardiac catheterization to rule out ischemic heart disease and consider cardioversion. The patient wishes to follow up with Dr. Tony and pursue care further through him. One of the family members that arrived late also talked about possibly having her transferred to either [facility] or [facility]. I told them that we can facilitate all these things. OBJECTIVE: VITAL SIGNS: Today, heart rate is around 90 to 100 beats per minute, afebrile, blood pressure is 149/82, respiratory rate is 18, O2 saturation is 97% on room air. NECK: There is no jugular venous distention. CHEST: Reveals good air entry bilaterally. HEART: Reveals first and second heart sounds. Regular rhythm. EXTREMITIES: Did not reveal significant edema. LABORATORY DATA: I do not have any labs on her from this morning. Yesterday's labs showed potassium of 4.3, creatinine is 0.57. ASSESSMENT AND PLAN: 1. Cardiomyopathy with severe left ventricular systolic dysfunction. 2. Atrial fibrillation with poorly controlled ventricular rate. 3. Acute systolic heart failure given the elevated BNP, shortness of breath, and cough that were initially thought to be acute bronchitis. MMODL / IJN: [id number] /
[2022-08-22] MEDS: LOSARTAN 25 MG TAB PO SCH (04:44)
[2022-08-22] MEDS: METOPROLOL SUCCINATE (ER) 50 MG TAB.ER.24H PO SCH (04:44)
[2022-08-22] MEDS: PANTOPRAZOLE 40 MG TABLET PO SCH (04:44)
[2022-08-22] MEDS ORDERED: ASPIRIN 325 MG TAB PO ONE (05:00)
[2022-08-22] MEDS ORDERED: ATORVASTATIN 80 MG TAB PO ONE (05:00)
[2022-08-22 06:11] LABS: Glucose,Whole Blood 105 mg/dL (70-110)
[2022-08-22] MEDS ORDERED: HEPARIN SODIUM,PORCINE 10,000 UNIT in SODIUM CHLORIDE 0.9% 1,000 ML IRRIGATION PRN (07:00)
[2022-08-22] MEDS ORDERED: HEPARIN SODIUM,PORCINE 2,500 UNIT in SODIUM CHLORIDE 0.9% 250 ML IRRIGATION PRN (07:00)
[2022-08-22] MEDS ORDERED: VERAPAMIL 2.5 MG/ML 2 ML AMP ONE ×2 (08:53→10:32)
[2022-08-22] MEDS ORDERED: fentaNYL (PF) 50 MCG/ML 2 ML AMP ONE (09:15)
[2022-08-22] MEDS ORDERED: LIDOCAINE 1% INJ 10MG/ML (30 ML VIAL-PF) IV ONE (09:19)
[2022-08-22] MEDS ORDERED: MIDAZOLAM 2 MG/2 ML VIAL IV ONE ×2 (09:19)
[2022-08-22] MEDS ORDERED: fentaNYL (PF) 50 MCG/ML 2 ML AMP IV ONE ×2 (09:19)
[2022-08-22] MEDS ORDERED: SODIUM CHLORIDE 0.9% 1,000 ML IV ONE (09:19)
[2022-08-22] MEDS ORDERED: IOPAMIDOL-370 100ML BTL INJ ONE (09:45)
[2022-08-22] MEDS: FUROSEMIDE 20 MG TAB PO SCH (10:31)
[2022-08-22] MEDS ORDERED: ONDANSETRON 4 MG/2 ML VIAL ONE (10:32)
[2022-08-22] MEDS ORDERED: RX INFO: IV CONTRAST WAS GIVEN 1 EACH MISC MISCELLANE PRN (12:46)
[2022-08-22] MEDS ORDERED: SODIUM CHLORIDE 0.9% 1,000 ML IV SCH (13:00)
[2022-08-22 13:02] LABS: HCT 39.1 % (34.0-46.0); HGB 12.4 gm/dL (11.4-16.0); Hypochromasia Moderate; MCH 26.4 pg (25.0-35.0); MCHC 31.8 g/dL (31.0-37.0); MCV 82.9 fL (80.0-100.0); Mean Platelet Volume 8.6; Platelet Count 307 k/uL (150-450); RBC 4.71 m/uL (3.80-5.40); RDW 15.6 % (11.5-15.5); WBC 7.3 k/uL (3.8-10.6)
[2022-08-22 13:10] LABS: ALT 102 U/L (4-34); AST 47 U/L (14-36); African American GFR (CKD) >90 (>60 ml/min/1.73 sqM); Alkaline Phosphatase 70 U/L (38-126); Anion Gap 9 mmol/L; Blood Urea Nitrogen 14 mg/dL (7-17); Carbon Dioxide 23 mmol/L (22-30); Chloride 110 mmol/L (98-107); Glucose 101 mg/dL (74-99); Non-African American GFR(CKD) >90 (>60 ml/min/1.73 sqM); Potassium 4.3 mmol/L (3.5-5.1); Sodium 142 mmol/L (137-145); Total Bilirubin 0.9 mg/dL (0.2-1.3); Total Protein 6.1 g/dL (6.3-8.2)
[2022-08-22] MEDS: THIAMINE 100 MG TAB PO SCH (13:17)
[2022-08-22] MEDS: MULTIVITAMINS, THERA 1 EACH TAB PO SCH (13:17)
[2022-08-22] MEDS: ASCORBIC ACID 500 MG TAB PO SCH (13:17)
[2022-08-22] MEDS: FOLIC ACID 1 MG TAB PO SCH (13:17)
--- NOTE | 2022-08-22 13:20 | P.PN ---
Subjective Progress Note Date: 08/22/22 This is a 62-year-old female who was recently presented to the emergency department with with palpitations and increasing shortness of breath. Patient reports she has been seen at the outpatient setting in an urgent care started on antibiotics and steroids and has completed the course reporting feeling better she was reporting some upper sinus congestion and pressure with some occasional shortness of breath. Patient reports she felt better for a few days and the palpitations started again and was instructed to follow-up at the ER for further evaluation. Patient follows with Dr. Moura in the outpatient setting with no past medical history reports that she does not take medications on a regular basis. Patient does have an inhaler as needed that was given to her recently. EKG displayed atrial fibrillation with RVR with a heart rate of 115. Chest x- ray with no acute pulmonary process with concerns of a possible minimal posterior right pleural effusion. Troponin was negative. Patient was started on IV heparin along with Cardizem and her heart rate dropped down to the 60s quickly and Cardizem was discontinued. Cardiology was consulted for evaluation and continued telemetry monitoring. 2-D echo is ordered and pending. 08/21/2022 Patient is seen and evaluated and follow-up this morning continues to wait for 2-D echo that was ordered yesterday. water and fire technician are aware. Cardiology is following patient continues in A. fib rate controlled on dose of metoprolol and was started on oral anticoagulation. Discussed with the patient as she is extremely anxious about discharging home and would like to wait for 2-D echo report. Patient and family at the bedside are agreeable with this and will follow-up once report is available. Patient is afebrile denies chest pain or palpitations. Patient denies shortness of breath at this time. Patient reports she has been up and walking with no difficulties. Patient's hemoglobin A1c was also found to be elevated at 6.4 suggestive of prediabetes and a glucometer was provided by social work and discussed with the patient about diet management and following up with primary care provider and will be starting any new medications at this time. Recommend continue with cardiac management prior to initiating any form of diabetic medications. 08/22/2022 Patient is seen and evaluated this morning scheduled to undergo cardiac catheterization with cardiology following closely. Social work following as well and arranging for LifeVest on discharge as patient is noted to have congestive heart failure systolic dysfunction with an EF of 20-25%. Patient denies chest pain, palpitations, or shortness of breath. Patient is afebrile. Currently nothing by mouth for the procedure. Multiple family members at the bedside and will await cardiac cath report. A.m. labs currently pending. Review of systems: Constitutional: No reports of fatigue, fever, or chills Cardiovascular: No reports of chest pain or palpitations Respiratory: No reports of shortness of breath or cough GI: No reports of nausea, vomiting, or diarrhea : No reports of dysuria or retention Neurovascular: No reports of weakness or numbness All medications have been reviewed Active Medications Acetaminophen (Acetaminophen Tab 325 Mg Tab) 650 mg PO Q6HR PRN PRN Reason: Mild Pain or Fever > 100.5 Albuterol Sulfate (Albuterol Nebulized 2.5 Mg/3 Ml) 2.5 mg INHALATION RT-Q6H PRN PRN Reason: Shortness Of Breath Alprazolam (Alprazolam 0.25 Mg Tab) 0.25 mg PO Q6HR PRN PRN Reason: Mild Anxiety Alprazolam (Alprazolam 0.5 Mg Tab) 0.5 mg PO Q6HR PRN PRN Reason: Moderate Anxiety Ascorbic Acid (Ascorbic Acid 500 Mg Tab) 500 mg PO DAILY TRISTIN Folic Acid (Folic Acid 1 Mg Tab) 1 mg PO DAILY@1200 [facility] Furosemide (Furosemide 20 Mg Tab) 20 mg PO DAILY TRISTIN Last Admin: 08/22/22 10:31 Dose: 20 mg Heparin Sodium (Porcine) (Heparin Sodium 1,000 Un/Ml (10ml Vl)) 0 unit IV PER PROTOCOL PRN; Protocol PRN Reason: Low PTT Heparin Sodium (Porcine) 10, (000 unit/ Sodium Chloride) 1,001 mls @ 999 mls/hr IRRIGATION ONCE PRN PRN Reason: INTRA-OP Stop: 08/22/22 23:00 Heparin Sodium (Porcine) 2,500 (unit/ Sodium Chloride) 250.5 mls @ 250 mls/hr IRRIGATION ONCE PRN PRN Reason: INTRA-OP Stop: 08/22/22 23:00 Heparin Sodium/Sodium Chloride (25,000 unit/ Sodium Chloride) 250 mls @ 10 mls/hr IV .Q24H TRISTIN; Protocol Last Titration: 08/22/22 06:56 Dose: 0 units/kg/hr, 0 mls/hr Sodium Chloride (Saline 0.9%) 1,000 mls @ 50 mls/hr IV .Q20H [facility] Losartan Potassium (Losartan 25 Mg Tab) 25 mg PO DAILY [facility] Last Admin: 08/22/22 04:44 Dose: 25 mg Metoprolol Succinate (Metoprolol Succinate (Er) 50 Mg Tab.Er.24h) 50 mg PO DAILY [facility] Last Admin: 08/22/22 04:44 Dose: 50 mg Miscellaneous Information (Rx Info: Iv Contrast Was Given 1 Each Misc) 1 each MISCELLANE DAILY PRN PRN Reason: Per Protocol Stop: 08/24/22 12:47 Multivitamins (Multivitamins, Thera 1 Each Tab) 1 each PO DAILY@1200 [facility] Naloxone HCl (Naloxone 0.4 Mg/Ml 1 Ml Vial) 0.2 mg IV Q2M PRN PRN Reason: Opioid Reversal Nitroglycerin (Nitroglycerin Sl Tabs 0.4 Mg Tab) 0.4 mg SUBLINGUAL Q5M PRN PRN Reason: Chest Pain Pantoprazole Sodium (Pantoprazole 40 Mg Tablet) 40 mg PO AC-BRKFST [facility] Last Admin: 08/22/22 04:44 Dose: 40 mg Thiamine HCl (Thiamine 100 Mg Tab) 100 mg PO DAILY@1200 TRISTIN PHYSICAL EXAMINATION: GENERAL: The patient is alert and oriented x4, Well developed, well nourished, obese. HEENT: Pupils are round and equally reacting to light. EOMI. no scleral icterus. No conjunctival pallor. Normocephalic, atraumatic. No pharyngeal erythema. No thyromegaly. CARDIOVASCULAR: S1 and S2 muffled , irregularly irregular PULMONARY: diminished breath sounds bilaterally with no wheezing or rhonchi noted. ABDOMEN: soft. Nontender on exam. obese. non-distended, normoactive bowel sounds. No palpable organomegaly. MUSCULOSKELETAL: No joint swelling or deformity. EXTREMITIES: No cyanosis, clubbing, or pedal edema. NEUROLOGICAL: Gross neurological examination did not reveal any focal deficits. SKIN: No rashes. Assessment: Atrial fibrillation with RVR, new onset History of recent bronchitis with outpatient treatment Severe mitral and tricuspid insufficiency with systolic congestive heart failure with concerns of cardiomyopathy, EF is 20-25% Elevated BNP likely secondary to above Obesity with a BMI of 37.8 Hemoglobin A1c of 6.4, possible pre-diabetes GI prophylaxis DVT prophylaxis Full code Plan: Recommend to continue with current medications and management with cardiology following. Patient has been transitioned to Eliquis in currently rate controlled on Toprol and patient was agreeable with cardiac catheterization and underwent cath this morning and was clear with no stents needed. Social work following working on [employer] currently awaiting insurance approval and will also need extensive education at the bedside from [facility] prior to discharge. Patient is currently on bed rest per protocol. Multiple family members at the bedside with questions and concerns that were answered to the best of our ability. Recommend other lab studies including sed rate and CRP along with ferritin and urinalysis with micro-and will also order liver and gallbladder ultrasound which are currently pending. Recommend chest x-ray in the morning and will follow-up with patient and her family. Awaiting cardiology clearance for discharge and patient will be following with Dr. Tony on discharge and he was made aware. Recommend a.m. labs as well and will continue to monitor closely. Due to multiple complex medical issues, prognosis is guarded. The impression and plan of care has been dictated by Lelia Myrick, nurse practitioner as directed. Dr. Bhavesh MD I have performed a history and examination and MDM of this patient, discussed the same with the dictator, and agree with the dictator's assessment and plan as written ,documented as a scribe. Based on total visit time, I have performed more than 50% of the visit. Any additional findings or plans will be noted. Objective - Vital Signs Vital signs: Vital Signs Temp 98.4 F 08/21/22 20:00 Pulse 78 08/22/22 01:59 Resp 16 08/22/22 01:59 BP 110/68 08/21/22 23:36 Pulse Ox 96 08/21/22 23:36 FiO2 Intake & Output 08/21/22 08/22/22 08/22/22 18:59 06:59 18:59 Intake Total 360 669.5 Balance 360 669.5 Intake: Intake, IV Titration 189.5 Amount Heparin Sod,Pork in 0.45% 189.5 NaCl 25,000 unit In 0.45 % NaCl 1 250ml.bag @ 10. 021 UNITS/KG/HR 10 mls/hr IV .Q24H TRISTIN Rx#: [id number] Oral 360 480 Other: # Voids 2 - Labs CBC & Chem 7: 08/22/22 12:23 08/21/22 12:41 Labs: Abnormal Lab Results - Last 24 Hours (Table) 08/21/22 08/21/22 Range/Units 12:41 12:41 MCHC 30.9 L (31.0-37.0) g/dL RDW 15.8 H (11.5-15.5) % Chloride 113 H (98-107) mmol/L Carbon Dioxide 18 L (22-30) mmol/L Glucose 115 H (74-99) mg/dL AST 57 H (14-36) U/L ALT 124 H (4-34) U/L
[2022-08-22 14:17] LABS: Basophils % (A) 0 %; Eosinophils % (A) 1 %; HCT 38.3 % (34.0-46.0); HGB 12.3 gm/dL (11.4-16.0); Hypochromasia Marked; Lymphocytes # (A) 1.8 k/uL (1.0-4.8); Lymphocytes % (A) 29 %; MCH 27.2 pg (25.0-35.0); MCHC 32.2 g/dL (31.0-37.0); MCV 84.5 fL (80.0-100.0); Mean Platelet Volume 7.6; Monocytes # (A) 0.3 k/uL (0-1.0); Monocytes % (A) 5 %; Neutrophils % (A) 65 %; Platelet Count 325 k/uL (150-450); RBC 4.54 m/uL (3.80-5.40); RDW 15.2 % (11.5-15.5); WBC 6.2 k/uL (3.8-10.6)
[2022-08-22 14:28] LABS: African American GFR (CKD) >90 (>60 ml/min/1.73 sqM); Anion Gap 5 mmol/L; Blood Urea Nitrogen 14 mg/dL (7-17); C Reactive Protein <0.5 mg/dL (<1.0); Calcium 8.9 mg/dL (8.4-10.2); Carbon Dioxide 26 mmol/L (22-30); Chloride 109 mmol/L (98-107); Glucose 109 mg/dL (74-99); Non-African American GFR(CKD) 79 (>60 ml/min/1.73 sqM); Potassium 4.4 mmol/L (3.5-5.1); Sodium 140 mmol/L (137-145)
--- NOTE | 2022-08-22 14:58 | CC ---
CARDIAC CATHETERIZATION REPORT INDICATION: New-onset cardiomyopathy. PROCEDURE NOTE: After obtaining informed consent, left heart catheterization and coronary angiogram were performed via the right femoral artery using standard Marleny catheters. The patient tolerated the procedure well without any obvious immediate complications. A femoral angiogram was performed, and Angio-Seal will be deployed for hemostasis. The patient received moderate conscious sedation. Total sedation time was 27 minutes. I initially attempted a vascular access through the right radial artery and was unsuccessful, hence, proceeded with the right femoral catheterization uneventfully. FINDINGS: 1. HEMODYNAMICS: Left ventricular end-diastolic pressure is 16 mmHg. There is no significant gradient across the aortic valve. 2. LEFT VENTRICULOGRAM: Left ventriculogram is not performed. 3. ANGIOGRAPHIC DATA: a.Left main coronary artery: Left main coronary artery is a normal-sized vessel and is free of stenosis, divides into left anterior descending coronary artery and circumflex coronary artery. b.LAD and its branches and circumflex coronary artery and the branches are free of significant stenosis. c.Right coronary artery is a large dominant vessel and is free of significant disease. CONCLUSIONS: Normal coronary arteries. PLAN: The patient has nonischemic cardiomyopathy with significant mitral regurgitation with new-onset atrial fibrillation. We will treat her with beta-blockers and TUCKER inhibitors. Start the patient on Aldactone and a small dose of diuretic. Arrange for a LifeVest today, and the patient wishes to follow up with Dr. Tony. I asked her to come see him later this afternoon if she can. Hopefully, she can be discharged home in the moment. MMODL / IJN: [id number] /
[2022-08-22 15:06] LABS: Erythrocyte Sedimentation Rate 3 mm/hr (0-20)
[2022-08-22 16:37] LABS: Appearance,Urine Clear (Clear); Bilirubin,Urine Negative (Negative); Blood,Urine Negative (Negative); Color,Urine Light Yellow; Glucose,Urine (UA) Negative (Negative); Ketones,Urine Negative (Negative); Leukocyte Esterase,Urine Negative (Negative); Nitrite,Urine Negative (Negative); Protein,Urine Negative (Negative); Specific Gravity,Urine 1.012 (1.001-1.035); Urobilinogen,Urine <2.0 mg/dL (<2.0)
--- NOTE | 2022-08-22 17:38 | P.EPCON ---
Electrophysiology Consult - EP Consult Electrophysiology Consult: This is Dr. 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 Abnormal LFTs with ALT 2 times that of AST Atrial fibrillation with RVR Congestive heart failure, systolic acute, of recent onset No history of hypertension or diabetes Normal coronary arteries by coronary angiography Severe LV dysfunction RV enlargement PLAN: Anticoagulation for atrial fibrillation with a request Metoprolol for rate control and cardio myopathy Stop losartan and start ENTRESTO today Agree with LifeVest Check TSH Check BMP tomorrow Add spironolactone subsequently Follow-up in the office in one week HPI This is a 62-year-old female who had a viral bronchitis about 3-4 weeks back She was having cough expectoration shortness of breath and she went to the urgent care She was treated with oral antibiotics and steroids She feels as if she had improved in about 5-7 days However a week later she started complaining of shortness of breath once again not feeling well as well as cough Subsequently she started experiencing palpitations and this is what brought her to the hospital once again She was found to be in atrial fibrillation with RVR Subsequently a 2-D echo demonstrated I ventricular cardio myopathy with MR and TR She was treated for coronary myopathy and congestive heart failure and she underwent coronary angiography thereafter Current catheterization revealed LVEDP of 16 mmHg Coronary arteries are normal ROS: No fever chills or rigors, no cough, phlegm or expectoration, no nausea, vomiting or diarrhea, no hematuria, dysuria, no musculoskeletal complaints, no strokes or seizures, no skin lesions. EXAMINATION: On medical treatment, blood pressure 133/80 135/81 mmHg Pulse rate in the 60s and 70s irregular She's been atrial fibrillation with RVR and now she is on metoprolol Heart sounds soft systolic murmur irregular No JVD No orthopnea No lower extremity edema Clear lungs at this time no rhonchi no crackles. Patient has been treated with IV Lasix REVIEW OF LABS, ECG & MEDICAL DATA normal coronary arteries by coronary angiography LVEDP 16 2-D echo shows RV and LV current myopathy (2) systolic function 20-25% Severe MR and TR Right-sided pressures were moderately elevated No pericardial effusion TSH is normal AST 47 ALT 102 Normal ESR Normal C-reactive protein
[2022-08-22] MEDS: APIXABAN 5 MG TAB PO SCH (21:01)
[2022-08-22] MEDS: SACUBITRIL/VALSARTAN 24 MG-26 MG TABLET PO SCH (21:01)
[2022-08-23 02:56] LABS: Ferritin 17.7 ng/mL (10.0-291.0)
[2022-08-23 03:14] VITALS: TEMP 97.7
[2022-08-23] MEDS: PANTOPRAZOLE 40 MG TABLET PO SCH (06:05)
[2022-08-23 07:52] LABS: ALT 85 U/L (4-34); AST 37 U/L (14-36); African American GFR (CKD) >90 (>60 ml/min/1.73 sqM); Albumin 3.6 g/dL (3.5-5.0); Alkaline Phosphatase 65 U/L (38-126); Anion Gap 7 mmol/L; Blood Urea Nitrogen 17 mg/dL (7-17); Calcium 8.5 mg/dL (8.4-10.2); Carbon Dioxide 20 mmol/L (22-30); Chloride 113 mmol/L (98-107); Glucose 104 mg/dL (74-99); Non-African American GFR(CKD) >90 (>60 ml/min/1.73 sqM); Potassium 4.3 mmol/L (3.5-5.1); Sodium 140 mmol/L (137-145); Total Bilirubin 0.8 mg/dL (0.2-1.3); Total Protein 5.6 g/dL (6.3-8.2)
--- NOTE | 2022-08-23 08:24 | PN ---
PROGRESS NOTE HISTORY OF PRESENT ILLNESS: This is a 62-year-old lady who is admitted to hospital with cardiomyopathy with severe LV systolic dysfunction, mitral and tricuspid regurgitation, and new-onset atrial fibrillation. She underwent a cardiac catheterization yesterday that did not reveal significant obstructive CAD. She is currently anticoagulated with Eliquis 5 b.i.d. and is on Toprol 50 mg daily for rate control, was seen by EP, who is going to follow the patient after discharge who started her on Entresto. The patient had life vest setup this morning. She is free of symptoms and eager to go home. PHYSICAL EXAMINATION: VITAL SIGNS: Afebrile, heart rate is 87 beats per minute, respiratory rate 16, blood pressure is 112/74, and O2 saturation is 99% on room air. NECK: There is no jugular venous distention. CHEST: Exam reveals good air entry bilaterally. HEART: Exam reveals first and second heart sounds, irregular rhythm. EXTREMITIES: Did not reveal any edema. GROIN: Free of bleeding, bruits, hematoma. I do not have any labs this morning. ASSESSMENT: 1. Cardiomyopathy with severe LV systolic dysfunction. 2. Mitral and tricuspid regurgitation. 3. Persistent atrial fibrillation. PLAN: Patient will be discharged home on current medications. Followup with Dr. Apple. MMODL / IJN: [id number] /
--- NOTE | 2022-08-23 09:14 | US ---
EXAMINATION TYPE: US abdomen limited DATE OF EXAM: 08/23/2022 COMPARISON: NONE CLINICAL HISTORY: abdominal tenderness. Elevated LFT's TECHNIQUE: Multiple sonographic images of the right upper quadrant are obtained. FINDINGS: EXAM MEASUREMENTS: Liver Length: 13.0 cm Gallbladder Wall: 0.3 cm CBD: 0.6 cm Right Kidney: 11.4 x 5.1 x 5.6 cm OVEREDGER NOTES: Pancreas: wnl, tail obscured by overlying bowel gas Liver: Visualized portions appeared wnl Gallbladder: wall thickness upper limits of normal, possible small polyps Evidence for sonographic Chand's sign: No CBD: wnl Right Kidney: lobulation laterally, otherwise appeared wnl IMPRESSION: 1. Tiny echogenic areas of thickening within the gallbladder wall without posterior shadowing. Small polyps may be present.
[2022-08-23] MEDS: ASCORBIC ACID 500 MG TAB PO SCH (09:53)
[2022-08-23] MEDS: THIAMINE 100 MG TAB PO SCH (09:53)
[2022-08-23] MEDS: FUROSEMIDE 20 MG TAB PO SCH (09:54)
[2022-08-23] MEDS: APIXABAN 5 MG TAB PO SCH (09:54)
[2022-08-23] MEDS: METOPROLOL SUCCINATE (ER) 50 MG TAB.ER.24H PO SCH (09:54)
[2022-08-23] MEDS: MULTIVITAMINS, THERA 1 EACH TAB PO SCH (09:54)
[2022-08-23] MEDS: FOLIC ACID 1 MG TAB PO SCH (09:54)
[2022-08-23] MEDS: SACUBITRIL/VALSARTAN 24 MG-26 MG TABLET PO SCH (09:54)
[2022-08-23 11:46] VITALS: BP 132/87; PULSE 68; RESP 18
[2022-08-26 15:08] LABS: Parvovirus B-19 IgG Antibodies 4.8 INDEX (<=0.90); Parvovirus B-19 IgM Antibodies 0.18 INDEX (<=0.90)
--- NOTE | 2022-08-27 09:32 | CDI ---
Documentation Clarification Form Date: 08/27/22 From: Kacey Mcclellan Admit Date: 08/19/2022 01:40:00 PM Patient Name: Angie Burns Visit Number: [id number] Discharge Date: 08/23/2022 02:01:00 PM ATTENTION: The Clinical Documentation Specialists (CDI) and [facility] Coding Staff appreciate your assistance in clarifying documentation. Please respond to the clarification below the line at the bottom and electronically sign. The CDI & [facility] Coding staff will review the response and follow-up if needed. Please note: Queries are made part of the Legal Health Record. If you have any questions, please contact the author of this message via ITS. Dr. Rosa Ospina, The patients principal diagnosis the diagnosis that was chiefly responsible for the admission - has not been clearly identified and clarification is requested. The patient presented with the following atrial fibrillation and cardiomyopathy following recent bronchitis. History/Risk factors: no significant past history Clinical Indicators: She presents with new onset of atrial fibrillation and shortness of breath w recent bronchitis per ED Note. No previous hx of heart failure. BNP: 4980 08/21 Echo: Left ventricular ejection fraction is estimated at 20-25 %. Left ventricular cavity size normal. Mild concentric left ventricular hypertrophy. 08/19 Radiology findings: Suggestion of minimal posterior right pleural effusion. 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 Congestive heart failure, systolic acute, of recent onset. Atrial fibrillation with RVR. In your professional opinion, can you please clarify which diagnosis, after study, was the reason chiefly responsible for the admission? [ x ] Atrial fibrillation (specify type: paroxysmal, persistent) persistent [ ] Cardiomyopathy (specify type: viral, idiopathic, non- ischemic) [ ] Other, please specify [ ] Unable to determine MTDD
--- NOTE | 2022-08-29 15:54 | P.DS ---
Providers Date of admission: 08/19/22 13:40 Expected date of discharge: 08/23/22 Attending physician: Bruce Narayanan MD Consults: 08/19/22 13:40 Consult Physician Routine Consulting Provider: Raymon Garcia Consult Reason/Comments: new onset afib Do you want consulting provider notified?: Yes Primary care physician: Liban Moura Hospital Course: Final diagnosis Atrial fibrillation with RVR, new onset, persistent History of recent bronchitis with failed outpatient treatment Severe mitral and tricuspid insufficiency with systolic congestive heart failure with concerns of cardiomyopathy, EF is 20-25% Elevated BNP likely secondary to above Obesity with a BMI of 37.8 Hemoglobin A1c of 6.4, possible pre-diabetes GI prophylaxis DVT prophylaxis Full code Discharge disposition Patient is being discharged in a stable condition with guarded prognosis to home. Patient will follow-up with Dr. Moura in the outpatient setting upon discharge. Patient is to follow-up with Dr. Tony as scheduled. Patient is going home with a LifeVest and other cardiac medications as mentioned below. Total time taken is greater than 35 minutes. Hospital course This is a 62-year-old female who was recently admitted with increasing shortness of breath and palpitations. Patient has recently been At the urgent care started on a course of antibiotics and steroids slightly feeling better although the shortness of breath and palpitations returned which resulted in her coming to the ER for further evaluation. Patient was found to be in new onset atrial fibrillation with RVR and also with an elevated BMP and some minimal right posterior pleural effusions noted. Patient was seen and evaluated by cardiology started on medications and transitioned over to beta bello and oral eliquis. Cardizem and heparin was discontinued. 2-D echo was pending and delayed due to no staffing although ultimately showing the left ventricular size is normal although there is global decrease in contractility and estimated EF is 20-25% with severe mitral and tricuspid insufficiency. Right-sided pressures are moderately elevated although there is no pericardial effusion. Patient fitted and educated on LifeVest for discharge. Hemoglobin A1c borderline diabetic at 6.4 recommend monitoring blood sugars and diet modification and follow-up with primary care provider to discuss this. Patient was given a free glucometer and will need close outpatient follow-up with her primary care provider. She was seen and evaluated by Dr. Tony and will follow-up with him in the outpatient setting. Per nurses on the unit, office was contacted and they will call her to schedule the appointment. Currently no reports of chest pain, shortness of breath, or palpitations. Patient is afebrile. No reports of nausea or vomiting and patient is tolerating diet. Patient will b discharged home today. Guarded prognosis. Physical exam: Gen: This is a 62-year-old female awake, alert and oriented 3, well-developed, well-nourished, obese. HEENT: Head is atraumatic, normocephalic. Pupils equal, round. Sclerae is anicteric. NECK: Supple. No JVD. No lymphadenopathy. No thyromegaly. LUNGS Diminished breath sounds bilaterally with no wheezes or rhonchi. No intercostal retractions. HEART S1, S2 are muffled ABDOMEN: Soft. Bowel sounds are present. No masses. No tenderness. EXTREMITIES: No pedal edema. No calf tenderness. NEUROLOGICAL: Patient is awake, alert and oriented x3. Cranial nerves 2 through 12 are grossly intact. Please refer to medication reconciliation sheet for a list of medications. The impression and plan of care has been dictated by Lelia Myrick, Nurse Practitioner as directed. Dr. Bhavesh MD I have performed a history and examination and MDM of this patient, discussed the same with the dictator, and agree with the dictator's assessment and plan as written ,documented as a scribe. Based on total visit time, I have performed more than 50% of the visit. Patient Condition at Discharge: Fair Plan - Discharge Summary Discharge Rx Participant: No New Discharge Prescriptions: New Apixaban [Eliquis] 5 mg PO BID #60 tab Sacubitril/Valsartan [Entresto 24 mg-26 mg Tablet] 1 each PO BID 30 Days #60 tab Folic Acid 1 mg PO DAILY@1200 #30 tab Furosemide [Lasix] 20 mg PO DAILY 30 Days #30 tab Thiamine [Vitamin B-1] 100 mg PO DAILY@1200 #30 tab Acetaminophen Tab [Tylenol] 650 mg PO Q6HR PRN tab PRN Reason: Mild Pain Or Fever > 100.5 Multivitamins, Thera [Multivitamin (formulary)] 1 each PO DAILY@1200 #30 tab Metoprolol Succinate (ER) [Toprol XL] 50 mg PO DAILY 30 Days #30 tab Ascorbic Acid [Vitamin C] 500 mg PO DAILY #30 tab Continue Albuterol Sulfate [Albuterol Sulfate Hfa] 2 puff PO RT-Q6H PRN PRN Reason: Shortness Of Breath Discharge Medication List Albuterol Sulfate [Albuterol Sulfate Hfa] 2 puff PO RT-Q6H PRN 08/19/22 [History] Apixaban [Eliquis] 5 mg PO BID #60 tab 08/20/22 [Rx] Acetaminophen Tab [Tylenol] 650 mg PO Q6HR PRN tab 08/21/22 [Rx] Ascorbic Acid [Vitamin C] 500 mg PO DAILY #30 tab 08/23/22 [Rx] Folic Acid 1 mg PO DAILY@1200 #30 tab 08/23/22 [Rx] Furosemide [Lasix] 20 mg PO DAILY 30 Days #30 tab 08/23/22 [Rx] Metoprolol Succinate (ER) [Toprol XL] 50 mg PO DAILY 30 Days #30 tab 08/23/22 [Rx] Multivitamins, Thera [Multivitamin (formulary)] 1 each PO DAILY@1200 #30 tab 08/23/22 [Rx] Sacubitril/Valsartan [Entresto 24 mg-26 mg Tablet] 1 each PO BID 30 Days #60 tab 08/23/22 [Rx] Thiamine [Vitamin B-1] 100 mg PO DAILY@1200 #30 tab 08/23/22 [Rx] Follow up Appointment(s)/Referral(s): Nathan Tony MD [STAFF PHYSICIAN] - 1 Week (Office will call you with appointment date and time.) Liban Moura III, MD [Primary Care Provider] - 1-2 days (Office will call with appointment date and time. ) Ambulatory/Diagnostic Orders: Complete Blood Count w/diff [LAB.AMB] Time Frame: 3 Days, Location: None Selected Patient Instructions/Handouts: Heart Failure (DC), A-fib (Atrial Fibrillation) (DC), Heart Healthy Diet (DC), Basic Carbohydrate Counting (DC), Meal Planning with Diabetes Exchanges (DC) Activity/Diet/Wound Care/Special Instructions: Activity Limited until follow-up Follow-up with cardiology outpatient Follow-up with primary care provider outpatient and discuss hemoglobin A1c of 6.4, initiating diet modifications Continue to monitor blood sugar once daily and keep a diary of readings and bring with you to primary care follow-up appointment Continue heart healthy consistent carb diet labs in 2-3 days Obtain a blood pressure cuff and keep a diary of blood pressure readings for primary and cardiology follow-up If blood pressure systolic is 100 or less hold medications and call primary and/or cardiology Eliquis $175.86 per month, free month supplied. Please call phone number provided to qualify for $10 per month Discharge Disposition: HOME SELF-CARE
== END 2022-08-23 14:01 | disposition home or self-care (01) | DRG 286 ==
LOC: EC 10:45 → 3SCARD 13:40
PROVIDERS: ADMIT Internal Medicine; ATTEND Internal Medicine
PROC: B2111ZZ Fluoroscopy of Multiple Coronary Arteries using Low Osmolar Contrast (ICD-10-PCS; principal; 2022-08-22 09:00)
PROC: 4A023N7 Measurement of Cardiac Sampling and Pressure, Left Heart, Percutaneous Approach (ICD-10-PCS; principal; 2022-08-22 09:00)
DX: I48.19 Other persistent atrial fibrillation (principal); I50.21 Acute systolic (congestive) heart failure; B33.24 Viral cardiomyopathy; I08.1 Rheumatic disorders of both mitral and tricuspid valves; R73.03 Prediabetes; E66.9 Obesity, unspecified; Z68.37 Body mass index [BMI] 37.0-37.9, adult; Z88.1 Allergy status to other antibiotic agents; Z82.49 Family history of ischemic heart disease and other diseases of the circulatory system
CPT/HCPCS: 36415; 71046; 76705; 80048; 80053; 81003; 82728; 83036; 83735; 83880; 84443; 84484; 85025; 85027; 85610; 85652; 85730; 86140; 86658; 86747; 93005; 93306; 93458; 96365; 96366; 96368; 99291

== ENCOUNTER → 2022-09-04 | Outpatient (CLI) | payer BC ==
[2022-09-05 02:50] LABS: African American GFR (CKD) 107.6 (60.0-200.0); Anion Gap 12.4 mmol/L (10.00-18.00); BUN/Creat Ratio 29.57 Ratio (12.00-20.00); Blood Urea Nitrogen 20.7 mg/dL (9.0-27.0); Calcium 9.3 mg/dL (8.7-10.3); Carbon Dioxide 21.6 mmol/L (20.0-27.5); Non-African American GFR(CKD) 92.9 (60.0-200.0); Potassium 4.7 mmol/L (3.5-5.5)
== END | disposition home or self-care (01) ==
LOC: LABWHC1 12:58
PROVIDERS: ATTEND Nurse Practitioner Adult Health
DX: I10 Essential (primary) hypertension (principal)
CPT/HCPCS: 36415; 80048; 83735

== ENCOUNTER → 2022-10-03 | Outpatient (CLI) | payer BC ==
[2022-10-03 18:40] LABS: HCT 44.9 % (37.2-46.3); HGB 13.5 g/dL (12.0-15.0); MCH 25.7 pg (27.0-32.0); MCHC 30.1 g/dL (32.0-37.0); MCV 85.4 fL (80.0-97.0); Mean Platelet Volume 10.2 fL (9.5-12.2); NRBC Per 100 WBC 0 /100 WBCS (0.0-0.0); Platelet Count 428 X 10*3/uL (140-440); RBC 5.26 X 10*6/uL (4.10-5.20); WBC 7.35 X 10*3/uL (4.50-10.00)
[2022-10-03 18:45] LABS: African American GFR (CKD) 109.6 (60.0-200.0); Anion Gap 10.3 mmol/L (10.00-18.00); Blood Urea Nitrogen 10.8 mg/dL (9.0-27.0); Carbon Dioxide 26.2 mmol/L (20.0-27.5); Non-African American GFR(CKD) 94.6 (60.0-200.0); Potassium 4.7 mmol/L (3.5-5.5)
== END | disposition home or self-care (01) ==
LOC: LABPAT 13:07
PROVIDERS: ATTEND Internal Medicine Clinical Cardiac Electrophysiology
DX: Z01.812 Encounter for preprocedural laboratory examination (principal); I48.19 Other persistent atrial fibrillation; I50.23 Acute on chronic systolic (congestive) heart failure; I42.8 Other cardiomyopathies
CPT/HCPCS: 36415; 80051; 82565; 84520; 85027

== ENCOUNTER 2022-10-10 07:10 | Day surgery (SDC) | payer BC ==
[2022-10-07 15:36] VITALS: BMI 34.8
[~2022-10-10 07:10] MED LIST: SODIUM CHLORIDE 0.9% 1,000 ML IV SCH
[2022-10-10 07:45] VITALS: RESP 16; TEMP 97.1
[2022-10-10] MEDS ORDERED: PROPOFOL 10 MG/ML 20 ML VIAL IV ONE (09:09)
[2022-10-10] MEDS ORDERED: LIDOCAINE 2% INJ 20 MG/ML (2 ML VIAL) ONE (09:09)
[2022-10-10] MEDS ORDERED: HEPARIN SODIUM,PORCINE 5,000 UNIT/ML 1 ML VIAL ONE (09:09)
[2022-10-10] MEDS ORDERED: IV FLUID CONTINUATION 300 ML IV ONE (09:11)
--- NOTE | 2022-10-10 09:43 | P.EPPROC ---
- EP Procedure Note Electrophysiology Procedure Note: Diagnosis Persistent atrial fibrillation with RVR Cardiomyopathy likely viral. Congestive heart failure on medical treatment Currently on ELIQUIS ENTRESTO and metoprolol 50 mg daily Details Successful electrical cardioversion with a 200 J biphasic shock to sinus rhythm Occasional PACs Twelve-lead EKG shows sinus mechanism with occasional PAC and nonspecific ST-T abnormalities with T-wave inversions in V1-V6 Suggest Continue ELIQUIS Try increasing metoprolol succinate to 75 mg by mouth daily if possible Continue ENTRESTO [facility]-up with [facility] as planned before
[2022-10-10 10:23] VITALS: BP 130/58; PULSE 86
== END 2022-10-10 10:24 | disposition home or self-care (01) ==
LOC: CATHEP 07:10
PROVIDERS: ATTEND Internal Medicine Clinical Cardiac Electrophysiology
DX: I48.19 Other persistent atrial fibrillation (principal); I42.8 Other cardiomyopathies; I11.0 Hypertensive heart disease with heart failure; I50.23 Acute on chronic systolic (congestive) heart failure; Z79.01 Long term (current) use of anticoagulants; Z79.02 Long term (current) use of antithrombotics/antiplatelets; I08.1 Rheumatic disorders of both mitral and tricuspid valves; Z88.1 Allergy status to other antibiotic agents; Z82.49 Family history of ischemic heart disease and other diseases of the circulatory system; Z79.891 Long term (current) use of opiate analgesic
CPT/HCPCS: 92960; J1644; J2704; J2001

== ENCOUNTER → 2024-11-22 | Outpatient (CLI) | payer BC ==
[2024-11-22 16:40] LABS: ALT 26 U/L (8-44); AST 28 U/L (13-35); Albumin 4.4 g/dL (3.8-4.9); Albumin/Globulin Ratio 1.63 Ratio (1.60-3.17); Alkaline Phosphatase 79 U/L (41-126); BUN/Creat Ratio 14.57 Ratio (12.00-20.00); Blood Urea Nitrogen 10.2 mg/dL (9.0-27.0); Calcium 9.3 mg/dL (8.7-10.3); Carbon Dioxide 22.4 mmol/L (21.6-31.8); Chloride 106 mmol/L (96-109); Chol/HDL Ratio 3.02 Ratio; Globulin 2.7 g/dL (1.6-3.3); Glucose 129 mg/dL (70-110); LDL Cholesterol,Calculated 63.2 mg/dL (0.0-131.0); Magnesium 1.8 mg/dL (1.5-2.4); Potassium 4.2 mmol/L (3.5-5.5); Sodium 142 mmol/L (135-145); Total Bilirubin 0.3 mg/dL (0.3-1.2); Total Protein 7.1 g/dL (6.2-8.2)
[2024-11-22 17:02] LABS: Basophils # (A) 0.01 X 10*3/uL (0.00-0.10); Basophils % (A) 0.2 %; Eosinophils # (A) 0 X 10*3/uL (0.04-0.35); Eosinophils % (A) 0 %; HCT 43.5 % (37.2-46.3); HGB 13.8 g/dL (12.0-15.0); Lymphocytes # (A) 1.27 X 10*3/uL (0.90-5.00); Lymphocytes % (A) 26.2 %; MCH 26.6 pg (27.0-32.0); MCHC 31.7 g/dL (32.0-37.0); Mean Platelet Volume 10.5 FL (9.5-12.2); Monocytes # (A) 0.34 X 10*3/uL (0.20-1.00); NRBC Per 100 WBC 0 X 10*3/uL (0.00-0.01); Neutrophils # (A) 3.21 X 10*3/uL (1.80-7.70); Neutrophils % (A) 66.4 %; Platelet Count 390 X 10*3/uL (140-440); RBC 5.18 X 10*6/uL (4.10-5.20); RDW 14.3 % (11.5-14.5); WBC 4.84 X 10*3/uL (4.50-10.00)
== END | disposition home or self-care (01) ==
LOC: LABWHC1 11:20
PROVIDERS: ATTEND Internal Medicine Clinical Cardiac Electrophysiology
DX: I48.0 Paroxysmal atrial fibrillation (principal); E78.5 Hyperlipidemia, unspecified
CPT/HCPCS: 36415; 80053; 80061; 83735; 84443; 85025

== ENCOUNTER 2024-12-07 09:52 | Day surgery (SDC) | payer BC ==
[2024-12-03 12:04] VITALS: BMI 38.7
[~2024-12-07 09:52] MED LIST changes: +LACTATED RINGERS 1,000 ML IV SCH; -SODIUM CHLORIDE 0.9% 1,000 ML IV SCH
[2024-12-07] MEDS: SODIUM CHLORIDE 0.9% 1,000 ML IV SCH (10:26)
[2024-12-07] MEDS: MIDAZOLAM 2 MG/2 ML VIAL IV ONE (10:36)
[2024-12-07 11:14] VITALS: RESP 16; TEMP 98.4
[2024-12-07] MEDS: IV FLUID CONTINUATION 1,000 ML IV ONE (11:14)
[2024-12-07] MEDS ORDERED: LIDOCAINE 1% INJ 10MG/ML (20 ML MDV) ONE (11:15)
[2024-12-07] MEDS ORDERED: PROPOFOL 10 MG/ML 20 ML VIAL IV ONE (11:15)
--- NOTE | 2024-12-07 11:34 | P.HPCAR ---
History of Present Illness This is Dr. Tony dictating an H/P on this patient The patient was interviewed and examined IMPRESSION / ASSESSMENT: Persistent atrial fibrillation, remains in A-fib despite flecainide Past history of atrial fibrillation with tachycardia mediated cardiomyopathy Normalization of LV function with rhythm control for over a year Recurrence of atrial fibrillation recently and symptomatic PLAN: Electrical cardioversion on flecainide Reassessment in sinus rhythm regarding dose of metoprolol succinate Continue flecainide Continue Eliquis Strongly consider A-fib ablation. Patient is expressed that she is very anxious about it. I had a very detailed discussion with her on multiple occasions and I would recommend an A-fib ablation especially since she has had A-fib related cardiomyopathy in the past. Now she has recurrence of atrial fibrillation HPI Patient complains of shortness of breath and palpitations for the last several weeks. She has been started on flecainide and metoprolol. She remains in atrial fibrillation today with RVR No chest pain no syncope ROS: No fever chills or rigors, no cough, phlegm or expectoration, no nausea, vomiting or diarrhea, no hematuria, dysuria, no musculoskeletal complaints, no strokes or seizures, no skin lesions. EXAMINATION: Blood pressure 149/83 mmHg pulse rate 110 100 beats minute irregular afebrile Breath sounds are reduced bilaterally Heart sounds are tachycardic and irregular Abdomen is soft REVIEW OF LABS, ECG & MEDICAL DATA Sodium 142 potassium 4.2 creatinine 0.7 LDL 63 Physical Exam Vitals: Vital Signs Temp Pulse Resp BP Pulse Ox 12/07/24 11:12 98.4 F 85 16 149/83 98 Intake and Output 12/06/24 12/07/24 12/07/24 22:59 06:59 14:59 Intake Total 70 Balance 70 Intake: IV 70 Other: Weight 102.6 kg Past Medical History Past Medical History: Atrial Fibrillation, Hypertension History of Any Multi-Drug Resistant Organisms: None Reported Past Surgical History: No Surgical Hx Reported Additional Past Surgical History / Comment(s): CARDIOVERSION-10/07/22 Past Anesthesia/Blood Transfusion Reactions: No Reported Reaction Smoking Status: Never smoker - Past Family History Mother Family Medical History: No Reported History Father Family Medical History: Cancer Physical Examination Vital Signs Temp Pulse Resp BP Pulse Ox 12/07/24 11:12 98.4 F 85 16 149/83 98 Intake and Output 12/06/24 12/07/24 12/07/24 22:59 06:59 14:59 Intake Total 70 Balance 70 Intake: IV 70 Other: Weight 102.6 kg Results Current Medications Generic Name Dose Route Start Last Admin Trade Name aMriela PRN Reason Stop Dose Admin Sodium Chloride 1,000 mls @ 20 mls/hr 12/07/24 05:51 12/07/24 10:26 Saline 0.9% IV 01/06/25 05:50 20 mls/hr .Q24H TRISTIN Administration Lactated Ringer's 1,000 mls @ 20 mls/hr 12/07/24 05:51 Lactated Ringers IV 01/06/25 05:50 .Q24H TRISTIN Intake and Output 12/06/24 12/07/24 12/07/24 22:59 06:59 14:59 Intake Total 70 Balance 70 Intake: IV 70 Other: Weight 102.6 kg Patient Weight 12/08/24 06:59 Weight 102.6 kg
[2024-12-07 12:47] VITALS: PULSE 70
[2024-12-07 12:49] VITALS: BP 116/66
--- NOTE | 2024-12-30 08:52 | P.EPPROC ---
- EP Procedure Note Electrophysiology Procedure Note: Diagnosis Persistent atrial fibrillation Details Successful electrical cardioversion on flecainide 50 mg twice daily Patient converted to sinus rhythm with heart rates in the 70s On flecainide 50 mg twice daily and metoprolol twelve-lead EKG shows Plan Continue Eliquis 5 mg twice daily Continue flecainide 50 mg twice daily Continue metoprolol succinate 50 mg twice daily I will schedule her for ablation I spoke to her family members and her regarding the importance of proceeding with an ablation since she is already had documented A-fib related cardiomyopathy with normalization of LV function when in sinus rhythm And now has had a recurrence of atrial fibrillation
== END 2024-12-07 12:49 | disposition home or self-care (01) ==
LOC: OR 09:52
PROVIDERS: ATTEND Internal Medicine Clinical Cardiac Electrophysiology
DX: I48.19 Other persistent atrial fibrillation (principal); I42.9 Cardiomyopathy, unspecified; I11.0 Hypertensive heart disease with heart failure; I50.9 Heart failure, unspecified; K21.9 Gastro-esophageal reflux disease without esophagitis; Z82.49 Family history of ischemic heart disease and other diseases of the circulatory system; Z88.1 Allergy status to other antibiotic agents; Z79.01 Long term (current) use of anticoagulants; Z79.899 Other long term (current) drug therapy
CPT/HCPCS: 92960; J2250; J2003; J2704